=== PATIENT | female | born 1950 | race Native Hawaiian/Other Pacific Islander ===

== ENCOUNTER 2018-08-22 11:10 | Inpatient (IN) | payer OTHER ==
[2018-08-22] VITALS (7 sets, daily range): BP systolic 105–153; BP diastolic 57–83; TEMP 97.4–98.9; Ht 162.6 cm; Wt 65.0 kg
[~2018-08-22] VITALS: Ht 162.6 cm; Wt 65.0 kg
[2018-08-22 14:08] LABS: PLATELET COUNT 275 K/uL (152-353)
[2018-08-22 14:46] LABS: POTASSIUM 2.3 mmol/L (3.6-5.2)
[2018-08-23] VITALS: BP 100/46; BP 161/74; TEMP 98
--- NOTE | 2018-08-23 01:09 | NUR ---
PT IN BED RESTING WITH EYES CLOSED. NAD NOTED. ON ROOM AIR. CALL LIGHT WITHIN REACH. BED IN LOWEST POSITION. WILL CONTINUE TO MONITOR
[2018-08-23 03:00] VITALS: BP 114/61
--- NOTE | 2018-08-23 03:17 | NUR ---
pt in bed resting with eyes closed. nad noted. nonlabored breathing assessed. call light within reach. will continue to monitor
[2018-08-23 05:00] VITALS: BP 108/54
--- NOTE | 2018-08-23 05:05 | NUR ---
pt assisted to bsc. pt voided 1000 ml of urine. assisted back to bed. nad noted. nonlabored breathing assessed. call light within reach. bed in lowest position. will continue to monitor
--- NOTE | 2018-08-23 05:07 | NUR ---
0400 nurse unable to administer medication due to pt.'s refusal [id number] pt in bed resting with eyes closed. nad noted. nonlabored breathing assessed. call light within reach. will continue to monitor.
[2018-08-23 06:38] LABS: POTASSIUM 3.2 mmol/L (3.6-5.2)
--- NOTE | 2018-08-23 07:55 | NUR ---
PATIENT AWAKE TEARFUL PULLING AT COVERS. STATED " THEY LEFT ME" RE ORIENTED PT TO HOSPITAL. KEEPING PT COVERED. PT AGITATED BY MONITOR WIRES. KEEPS PULLING OFF, PULLED GOWN OFF. KEEPS BLANKETS PULLED UP. COMFORT MEASURES PROVIDED.
[2018-08-23 08:00] VITALS: BP 142/93; TEMP 97.4
--- NOTE | 2018-08-23 09:31 | NUR ---
PATIENT ASSISTED TO CHAIR FOR BREAKFAST. DR PLATT HERE CHECKED PATIENT RECIEVED NEW ORDERS TALKED WITH U. PATIENT'S DAUGHTER HERE. PT ATE ALL BREAKFAST ESSENCE WELL.
[2018-08-23 09:33] LABS: PLATELET COUNT 282 K/uL (152-353)
--- NOTE | 2018-08-23 10:32 | NUR ---
DAUGHTER LEFT PATIENT ASSISTED BACK TO BED. ASSISTED TO BATHROOM OBTAINED URINE SAMPLE SPEC TO LAB. PT UP AND DOWN STATES "I'VE GOT TO GO HOME". PATIENT CRYING AT TIMES. ASSISTED BACK TO CHAIR. TAKING PO FLUIDS WELL.
[2018-08-23] MEDS ORDERED: MEMA10TA2 PO (11:24)
[2018-08-23] MEDS ORDERED: LIPITOR10 MG PO (11:26)
[2018-08-23] MEDS ORDERED: CHLORTHALID25 MG PO (11:28)
[2018-08-23] MEDS ORDERED: DONEPEZIL HYDRO10 M1 PO (11:30)
[2018-08-23] MEDS ORDERED: REMERON SOLTAB15 MG PO (11:31)
[2018-08-23] MEDS ORDERED: AMLODIPINE BESYLATE PO (11:36)
[2018-08-23] MEDS ORDERED: [UNRECOGNIZED DRUG - OTHER] XX (11:44)
[2018-08-23 12:00] VITALS: BP 152/93; TEMP 97.3
--- NOTE | 2018-08-23 12:07 | NUR ---
DR PLATT VISITED. PATIENT AWAKE SITTING UP, COOPERATIVE PATIENT KEEPS GETTING UP WALKING IN ICU ASSISTED PATIENT IS STEADY WHEN UP. RESTLESS DR PLATT OBSERVED. CONTINUE TO RE-ORIENT PATIENT TO ICU.
--- NOTE | 2018-08-23 13:52 | NUR ---
FAMILY MEMBER VISITED. PATIENT APPEARS MORE CALM NOT GETTING UP MUCH. ASSISTED WITH LUNCH TRAY ATE WELL 100% THEN BACK TO BED RESTING WITH HEAD OF BED UP. RESTING WITH EYES CLOSED RESP EVEN UNLABORED.
--- NOTE | 2018-08-23 14:15 | NUR ---
CALLED TO [place] AT [facility] RECIEVED REPORT ON PATIENT COMING TO [facility]. PATIENT FELT HER IV LOCK AND HAD PULLED IT OUT CATH INTACT NO REDNESS NO BLEEDING AT SITE. FAMILY MEMBERS HERE FOR VISIT PT RESTING BETTER WITH FAMILY NOTED PT STILL HAS SOME CONFUSION. UP TO BATHROOM TO VOID. CHART COPIED TO SEND WITH PATIENT.
--- NOTE | 2018-08-23 15:00 | NUR ---
RECIEVED POTASSIUM 40 MEQ PO CRUSHED MIXED WITH APPLESAUCE. PT TAKING PO FLUIDS WELL DOES NOT LIKE TO TAKE HER MEDS DAUGHTER HERE AT BEDSIDE ENCIURAGED HER MOM TO TAKE MEDS.
--- NOTE | 2018-08-23 15:40 | NUR ---
PATIENT UP TO BEDSIDE ASSISTED WITH DRESSSING MOVED TO WHEELCHAIR FAMILY MEMBERS HERE TO VISIT. LOS HERE FROM U TO GET PATIENT, SPOKE WITH DAUGHTER. RECIEVED CONTACT NUMBERS. PATIENT DISCHARGED FROM ICU TO BE ADMITTED TO U.
== END 2018-08-23 15:40 | DRG 641 ==
LOC: ED 11:10 → ICU 15:05
PROVIDERS: Internal Medicine; ADMIT Student in an Organized Health Care Education/Training Program
DX: E87.6 Hypokalemia (principal); F02.81 Dementia in other diseases classified elsewhere, unspecified severity, with behavioral disturbance; G30.8 Other Alzheimer's disease; I10 Essential (primary) hypertension; E78.49 Other hyperlipidemia; F32.89 Other specified depressive episodes; E78.00 Pure hypercholesterolemia, unspecified
CPT/HCPCS: 80048; 80053; 80307; 80320; 80329; 81000; 83735; 85027; 93005; 96365; 96372; 96375; 99285; J1630; J2060